=== PATIENT | male | born 1945 | race Caucasian/White ===

== ENCOUNTER → 2022-04-24 | Outpatient (CLI) | payer OTHER | END | disposition home or self-care (01) | LOC: LAB 13:15 → LAB SHORT 13:15 | PROVIDERS: Family Medicine | DX: G89.4 Chronic pain syndrome (principal); Z79.899 Other long term (current) drug therapy | CPT/HCPCS: G0480 ==

== ENCOUNTER 2023-08-31 22:18 | Emergency (ER) | payer OTHER ==
[~2023-08-31] VITALS: Ht 172.7 cm; Wt 79.4 kg
[2023-08-31 22:43] LABS: Hematocrit 34.4 % (37.0-53.0); Hemoglobin 11.7 g/dL (13.5-17.5); Mean Corpuscular HGB 28.9 pg (26.0-34.0); Mean Corpuscular Volume 85 fL (80-100); Mean Platelet Volume 11.5 fL (9.1-12.4); Platelet Count 219 K/mm3 (150-400); RDW Coefficient Variation 15.9 % (11.7-14.2); RDW Standard Deviation 49.5 fL (35.1-46.3); Red Blood Cell Count 4.05 M/mm3 (4.30-5.90); White Blood Cell Count 20.07 K/mm3 (4.00-11.30)
[2023-08-31 23:02] LABS: Albumin, Blood 3.4 g/dL (3.4-5.0); Albumin/Globulin Ratio 0.8 (0.8-1.8); BAND PERCENT MAN 17 % (0-8); BASOPHILS PERCENT MAN 0 % (0-2); Bilirubin, Total 1.1 mg/dL (0.1-1.0); Bun/Creatinine Ratio 28.1 (12.0-20.0); Calcium, Blood 8.9 mg/dL (8.5-10.1); Creatinine, Blood 1.39 mg/dL (0.60-1.20); EOSINOPHILS PERCENT MAN 0 % (0-6); Globulin, Blood 4.3 g/dL (2.2-4.0); LYMPHOCYTES PERCENT MAN 4 % (21-46); MONOCYTES PERCENT MAN 2 % (4-13); NEUTROPHILS ABSOLUTE MAN 18.86 K/mm3 (1.96-9.15); Potassium, Blood 3.6 mmol/L (3.5-5.5); SEG NEUTROPHILS PERCENT MAN 77 % (41-73); TOTAL CELLS COUNTED 100; Total Protein, Blood 7.7 g/dL (6.4-8.2)
[2023-09-01 02:00] VITALS: BP 105/50
[2023-09-01 02:25] LABS: Calcium, Ionized (POC) 1.07 mmol/L (1.10-1.46); Chloride (POC) 98 mmol/L (98-108); Creatinine (POC) 1.2 mg/dL (0.8-1.3); Glucose (ISTAT POC) 91 mg/dL (70-99); Hemoglobin (POC) 9.9 g/dL (13.5-17.5); Potassium (POC) 3.2 mmol/L (3.5-5.5); Sodium (POC) 132 mmol/L (135-148); Total CO2 (POC) 24 mmol/L (21-32)
== END 2023-09-01 02:23 | disposition home or self-care (01) ==
LOC: ER 22:18
PROVIDERS: Physician Assistant; Student in an Organized Health Care Education/Training Program
DX: A41.9 Sepsis, unspecified organism (principal); L03.116 Cellulitis of left lower limb; N17.9 Acute kidney failure, unspecified; E87.1 Hypo-osmolality and hyponatremia; E86.1 Hypovolemia; S30.810A Abrasion of lower back and pelvis, initial encounter; I10 Essential (primary) hypertension; W01.10XA Fall on same level from slipping, tripping and stumbling with subsequent striking against unspecified object, initial encounter
CPT/HCPCS: 70450; 72125; 73590; 80047; 80053; 83605; 85014; 85025; 96361; 96365; 99284-25; A9270; J0690; J7030

== ENCOUNTER 2023-09-03 16:39 | Inpatient (IN) | payer OTHER ==
[~2023-09-03] VITALS: Ht 170.2 cm; Wt 75.9 kg
[2023-09-03 17:27] LABS: Hematocrit 37.8 % (37.0-53.0); Hemoglobin 12.9 g/dL (13.5-17.5); Mean Corpuscular HGB 28.8 pg (26.0-34.0); Mean Corpuscular HGB Conc 34.1 g/dL (31.5-36.5); Mean Corpuscular Volume 84 fL (80-100); Mean Platelet Volume 11.9 fL (9.1-12.4); Platelet Count 344 K/mm3 (150-400); RDW Coefficient Variation 15.9 % (11.7-14.2); RDW Standard Deviation 49.9 fL (35.1-46.3); Red Blood Cell Count 4.48 M/mm3 (4.30-5.90); White Blood Cell Count 30.08 K/mm3 (4.00-11.30)
[2023-09-03 17:50] LABS: BAND PERCENT MAN 19 % (0-8); BASOPHILS PERCENT MAN 0 % (0-2); EOSINOPHILS PERCENT MAN 0 % (0-6); LYMPHOCYTES PERCENT MAN 7 % (21-46); MONOCYTES PERCENT MAN 2 % (4-13); NEUTROPHILS ABSOLUTE MAN 27.37 K/mm3 (1.96-9.15); SEG NEUTROPHILS PERCENT MAN 72 % (41-73); TOTAL CELLS COUNTED 100
[2023-09-03 17:55] LABS: Albumin, Blood 2.7 g/dL (3.4-5.0); Albumin/Globulin Ratio 0.5 (0.8-1.8); Bilirubin, Total 0.6 mg/dL (0.1-1.0); Bun/Creatinine Ratio 26.2 (12.0-20.0); Calcium, Blood 8.9 mg/dL (8.5-10.1); Creatinine, Blood 2.25 mg/dL (0.60-1.20); Globulin, Blood 5.2 g/dL (2.2-4.0); Potassium, Blood 3.5 mmol/L (3.5-5.5); Total Protein, Blood 7.9 g/dL (6.4-8.2)
[2023-09-03 21:44] LABS: Thyroid Stimulating Hormone 1.2 uIU/mL (0.360-4.800)
[2023-09-04] VITALS (93 sets, daily range): BP systolic 80–144; BP diastolic 43–101
[2023-09-04 00:37] LABS: Magnesium, Blood 2.3 mg/dL (1.6-2.4)
[2023-09-04] MEDS ORDERED: LISI20 PO (01:07)
[2023-09-04] MEDS ORDERED: ATOR40TA PO (01:08)
[2023-09-04] MEDS ORDERED: Norco 7.5-3251 EACH PO (01:08)
[2023-09-04] MEDS ORDERED: CEPHALEXIN500 M1 PO (01:09)
--- NOTE | 2023-09-04 02:41 | NUR ---
ARRIVAL TO ICU PT ARRIVED TO ICU VIA ED GURNEY. PER ED NURSE, AMIO BOLUS WAS STARTED AND PT SBP IN THE 70'S. HR 140-150'S. AMIO BOLUS WAS STOPPED BY ED RN AND KALE ORDERED. ORDER TO ADMINISTER BOLUS AFTER PT BP IMPROVES WITH KALE AND 1L BOLUS. APPROX 15 MINS AFTER ARRIVAL, PT SELF CONVERTED TO SR 70'S WITH MAP GREATER THEN 65. HOSP CALLED AND ORDER TO HOLD AMIO BOLUS AND GTT. KALE ON SB INITIALLY. PT THEN FELL ASLEEP, MAP BELOW 65 AND KALE STARTED. SEE FLOWSHEET FOR TITRATIONS. OTHER VSS. ON RA. WOUND TO LEFT FOOT AND LEFT BUTTOCK. PICS IN CHART. PREVIOUS REDNESS MARKED BELOW KNEE, CURRENT REDNESS EXTENDS PAST TO INNER THIGH. RASH/EXCORIATION IN MILLIE AREA. PT STATES HE STATES HE HAS BEEN USING "A DIAPER" THE PAST WEEK OR SO. PT STATES HE IS CONTINENT OF URINE. USES URINAL IND. GRANDSON AT BEDSIDE AND ABLE TO PROVIDE FURTHER HISTORY AND MEDICATION LIST. PT A/O X 4. FORGETFUL AT TIMES. BEDREST AT THIS TIME.
[2023-09-04 03:48] LABS: BASOPHILS ABSOLUTE AUTO 0.17 K/mm3 (0.00-0.23); BASOPHILS PERCENT AUTO 1 % (0-2); EOSINOPHILS PERCENT AUTO 0 % (0-6); Hematocrit 31.6 % (37.0-53.0); Hemoglobin 10.5 g/dL (13.5-17.5); IMMATURE GRAN ABSOLUTE AUTO 0.88 K/mm3 (0.00-0.10); IMMATURE GRAN PERCENT AUTO 4 % (0-1); LYMPHOCYTES ABSOLUTE AUTO 1.74 K/mm3 (0.84-5.20); LYMPHOCYTES PERCENT AUTO 7 % (21-46); MONOCYTES ABSOLUTE AUTO 0.99 K/mm3 (0.16-1.47); MONOCYTES PERCENT AUTO 4 % (4-13); Mean Corpuscular HGB 28.6 pg (26.0-34.0); Mean Corpuscular HGB Conc 33.2 g/dL (31.5-36.5); Mean Corpuscular Volume 86 fL (80-100); Mean Platelet Volume 11.6 fL (9.1-12.4); NEUTROPHILS ABSOLUTE AUTO 21.36 K/mm3 (1.96-9.15); NEUTROPHILS PERCENT AUTO 85 % (41-73); Platelet Count 291 K/mm3 (150-400); RDW Standard Deviation 50.3 fL (35.1-46.3); Red Blood Cell Count 3.67 M/mm3 (4.30-5.90); White Blood Cell Count 25.24 K/mm3 (4.00-11.30)
[2023-09-04 04:15] LABS: Albumin/Globulin Ratio 0.5 (0.8-1.8); Bilirubin, Total 0.5 mg/dL (0.1-1.0); Bun/Creatinine Ratio 41.3 (12.0-20.0); Calcium, Blood 7.3 mg/dL (8.5-10.1); Creatinine, Blood 1.26 mg/dL (0.60-1.20); Globulin, Blood 4.1 g/dL (2.2-4.0); Potassium, Blood 3.8 mmol/L (3.5-5.5); Total Protein, Blood 6.1 g/dL (6.4-8.2)
--- NOTE | 2023-09-04 05:53 | NUR ---
SHIFT SUMMARY NO ACUTE EVENTS T/O NIGHT. PT DID CONVERT TO AFIB RATE 120-140'S FOR APPROX 10MINS AND THEN SELF CONVERTED BACK TO SR 70-80'S. DENIES CHEST PAIN/PRESSURE. KALE GTT INFUSING. NS AT 125ML/HR. MEDICATED X1 WITH PRN PO MEDICATION. SEE EMAR. LEFT WOUND DRAINING CLEAR/YELLOW FLUID. PT VOIDS USING URINAL. GRANDSON AT BEDSIDE T/O NIGHT. WILL REPORT OFF TO ONCOMING RN.
--- NOTE | 2023-09-04 13:45 | NUR ---
WOUND CARE PT REPORTS RECENT FALL IN SHOWER WHERE HE "SCALDED" BUTTOCKS. WOULD RECOMMEND CLEANSING WITH NS AND APPLYING SILVADENE DAILY. LLE CLEANSED WITH DERMAL WOUND, LIGHT DEBRIDEMENT OF DRIED EXUDATE/SKIN WITH GAUZE NICKEL THICK SILICONE BARRIER CREAM APPLIED TO LOWER LEG AND FOOT COVERED ABD/ROLLED GAUZE
--- NOTE | 2023-09-04 15:19 | NUR ---
SHIFT SUMMARY NO ACUTE CHANGES THIS SHIFT. PT HAS REMAINED ALERT AND ORIENTED WHEN AWAKE. PT IS PLEASANT AND ABLE TO MAKE NEEDS KNOWN. PT MED FOR LLE PAIN PER EMAR. LLE REDDNESS AND SWELLING REMAINS UNCHANGED. WOUNDS TO LEFT HIP/BUTTOCKS UNCHANGED WITH DRESSINGS C/D/I. PT TITRATED OFF AND ON NEOSYNEPHRINE THIS SHIFT FOR HYPOTENSION. PT WITH KALE ON STANDBY AT THIS TIME. SEE FLOWSHEET. NS INFUSING AT 125 ML/HR. VITAL SIGNS STABLE AT THIS TIME. PT ON ROOM AIR. PT USING URINAL TO VOID INDEPENDENTLY. PT ABLE TO TURN SELF IN BED. PT GRANDSON AT BEDSIDE AT THIS TIME. PT REMAINS NPO AT THIS TIME, AWAITING PLAN OF CARE FROM DR PINEDA. WILL CONTINUE TO MONITOR AND REPORT OFF TO ONCOMING RN.
--- NOTE | 2023-09-04 19:25 | NUR ---
ASSUMED CARE OF PATIENT AT 1900. REPORT RECEIVED FROM LEORA CARTER. VSS AND NO ACUTE NEEDS IDENTIFIED AT THIS TIME. SEE SHIFT ASSESSMENT FOR FULL ASSESSMENT DETAILS.
[2023-09-05] VITALS (45 sets, daily range): BP systolic 92–154; BP diastolic 47–91
--- NOTE | 2023-09-05 05:42 | NUR ---
SHIFT SUMMARY PATIENT REMAINED ALERT AND ORIENTED X4 THROUGHOUT ENTIRETY OF SHIFT. HE WAS ABLE TO VERBALIZE NEEDS AND FOLLOW VERBAL COMMANDS WITH PUROSEFUL MOVEMENTS. REMAINED AFEBRILE. REPORTED ONE EPISODE OF PAIN IN LLE AND WAS MEDICATED PER EMAR WITH GOOD BENEFIT. MONITOR SHOWED SR WITH HR IN 70'S-80'S. BP REMAINED STABLE WITH SBP IN 90'S-100'S. NO BM THIS SHIFT. PATIENT NPO AT 0000 IN PREPARATION FOR SURGERY 09/05/23 AM. UTILIZES BEDSIDE URINAL WITH DARK YELLOW URINE OUTPUT. CELLULITIS TO LLE. PT WAS SEEN BY WOUND CLINIC 09/04/23 AM. PT ALSO HAS SCALD TO L BUTTOCK. PICS IN CHART. PIV TO RFA INFUSING NS AT 125ml/HR, PIV TO LAC. NEOSYNEPHRINE ON SB. WILL CONTINUE TO MONITOR AND REPORT TO ONCOMING NURSE.
[2023-09-05 08:31] LABS: Hematocrit 30.5 % (37.0-53.0); Hemoglobin 10.3 g/dL (13.5-17.5); Mean Corpuscular HGB 28.7 pg (26.0-34.0); Mean Corpuscular HGB Conc 33.8 g/dL (31.5-36.5); Mean Corpuscular Volume 85 fL (80-100); Mean Platelet Volume 10.5 fL (9.1-12.4); Platelet Count 318 K/mm3 (150-400); RDW Coefficient Variation 16.3 % (11.7-14.2); RDW Standard Deviation 50.8 fL (35.1-46.3); Red Blood Cell Count 3.59 M/mm3 (4.30-5.90); White Blood Cell Count 14.34 K/mm3 (4.00-11.30)
[2023-09-05 09:13] LABS: BAND PERCENT MAN 2 % (0-8); BASOPHILS ABSOLUTE MAN 0.14 K/mm3 (0.00-0.23); BASOPHILS PERCENT MAN 1 % (0-2); EOSINOPHILS PERCENT MAN 0 % (0-6); LYMPHOCYTES % ATYPICAL MANUAL 1 % (0-0); LYMPHOCYTES ABSOLUTE MAN 1.57 K/mm3 (0.84-5.20); LYMPHOCYTES PERCENT MAN 10 % (21-46); MONOCYTES ABSOLUTE MAN 0.43 K/mm3 (0.16-1.47); MONOCYTES PERCENT MAN 3 % (4-13); MYELOCYTE ABSOLUTE MAN 0.14 K/mm3 (0.00-0.00); MYELOCYTE PERCENT MAN 1 % (0-0); NEUTROPHILS ABSOLUTE MAN 12.04 K/mm3 (1.96-9.15); SEG NEUTROPHILS PERCENT MAN 82 % (41-73); TOTAL CELLS COUNTED 100
[2023-09-05 09:25] LABS: Albumin, Blood 2.1 g/dL (3.4-5.0); Albumin/Globulin Ratio 0.5 (0.8-1.8); Bilirubin, Total 0.4 mg/dL (0.1-1.0); Bun/Creatinine Ratio 28.7 (12.0-20.0); Calcium, Blood 8.3 mg/dL (8.5-10.1); Creatinine, Blood 1.08 mg/dL (0.60-1.20); Globulin, Blood 4.4 g/dL (2.2-4.0); Potassium, Blood 3.3 mmol/L (3.5-5.5); Total Protein, Blood 6.5 g/dL (6.4-8.2)
--- NOTE | 2023-09-05 10:50 | NUR ---
ASSUMED CARE REPORT FROM WENDY COREY AT 0700. PT RESTING IN BED. WAKES c VERBAL STIMULI. A&OX3. ANSWERS QUESTIONS APPROPRIATELY, FOLLOWS COMMANDS. PT FEARFUL AND UNSURE ABOUT CARE PLAN. DR MOYA AT BEDSIDE TO DISCUSS SX c BKA. PT VERBALIZED UNDERSTANDING, PLAN FOR OR AT APPROX 1200. SWELLING, REDNESS TO L FOOT, DRESSING IN PLACE. 3+ EDEMA. PT ALSO HAS SKIN SLOUGHING TO BACK, PICS IN CHART, DRESSED c MEPILEX. LUNGS CLEAR. ON RA. SR ON MONITOR, RATE 70'S. BP STABLE. PT ABLE TO AMBULATED c WALKER TO [facility] IN ROOM, STANDBY ASSIST. WILL CONTINUE TO MONITOR.
[2023-09-05 12:36] LABS: Vancomycin, Random 13.1 ug/mL
--- NOTE | 2023-09-05 14:05 | NUR ---
History, Chart, Medications and Allergies reviewed before start of procedure. Lungs clear T/O to Auscultation. Patient confirms NPO status and agrees with scheduled surgery. Pre-Op teaching done. Pt verbalizes understanding.
--- NOTE | 2023-09-05 14:06 | NUR ---
20G IV REMOVED FROM R WRIST DUE OT LEAKING AND REDNESS NOTED.
--- NOTE | 2023-09-05 14:22 | NUR ---
REPORT TO RAUL De Los Santos RN
--- NOTE | 2023-09-05 15:10 | NUR ---
OR/TRANSFER TO SURGICAL FLOOR PT TO OR AT 1330. REPORT TO RENE ON SURGICAL FLOOR. ALL BELONGINGS SENT TO ROOM 213.
--- NOTE | 2023-09-05 15:11 | NUR ---
TIME OUT COMPLETED FOR PERIPHERAL NERVE BLOCK TO LEFT LEG.
--- NOTE | 2023-09-05 17:33 | NUR ---
PATIENT JUST ARRIVED FROM PACU AT 1733. POD 0 LEFT BKA PATIENT IS A&OX4. VS ARE WNL AND IS ON RA. PATIENT DENIES PAIN AT THIS TIME. HIS LEFT STUMP HAS A STUMP SOCK THAT IS C/D/I AND IS ELEVATED ON A PILLOW. HE ALSO DENIES NAUSEA OR VOMITING. HE IS TOLERATING PO INTAKE. OBED CARDONA IS AT BEDSIDE. HE IS LAYING IN BED WITH CALL LIGHT IN REACH.
[2023-09-05 19:13] LABS: Bun/Creatinine Ratio 24.4 (12.0-20.0); Calcium, Blood 8.3 mg/dL (8.5-10.1); Creatinine, Blood 0.98 mg/dL (0.60-1.20); Potassium, Blood 3.8 mmol/L (3.5-5.5)
--- NOTE | 2023-09-06 02:25 | NUR ---
SINUS BRADYCARDIA. CALL RECEIVED FROM SURINDER BIRD IN TELEMETRY AT APPROXIMATLY 0220. PT'S HEART RATE DROPPED TO 39 BPM AND THEN RETURNS TO 52. PT IS REMAINING IN SINUS RHYTHM. THIS RN VISUALIZED PATIENT AND PT DENIES SOB, CHEST PAIN, LIGHTHEADEDNESS, OR DIZZINESS. PT A/O X4 AND REPORTS HE FEELS OK AND DENIES SYMPTOMS. LEFT BKA IS CLEAN DRY AND INTACT.
[2023-09-06 02:41] VITALS: BP 133/60
[2023-09-06 05:18] LABS: Hematocrit 26.3 % (37.0-53.0); Mean Corpuscular HGB 28.8 pg (26.0-34.0); Mean Corpuscular HGB Conc 34.2 g/dL (31.5-36.5); Mean Corpuscular Volume 84 fL (80-100); Mean Platelet Volume 10.6 fL (9.1-12.4); Platelet Count 280 K/mm3 (150-400); RDW Coefficient Variation 16.2 % (11.7-14.2); RDW Standard Deviation 49.8 fL (35.1-46.3); Red Blood Cell Count 3.13 M/mm3 (4.30-5.90); White Blood Cell Count 12.74 K/mm3 (4.00-11.30)
[2023-09-06 05:49] LABS: Albumin, Blood 1.9 g/dL (3.4-5.0); Albumin/Globulin Ratio 0.5 (0.8-1.8); Bilirubin, Total 0.3 mg/dL (0.1-1.0); Bun/Creatinine Ratio 25.5 (12.0-20.0); Calcium, Blood 8.2 mg/dL (8.5-10.1); Creatinine, Blood 0.94 mg/dL (0.60-1.20); Globulin, Blood 4.1 g/dL (2.2-4.0); Potassium, Blood 3.6 mmol/L (3.5-5.5)
[2023-09-06 05:56] LABS: BAND PERCENT MAN 3 % (0-8); BASOPHILS PERCENT MAN 0 % (0-2); EOSINOPHILS PERCENT MAN 0 % (0-6); LYMPHOCYTES % ATYPICAL MANUAL 1 % (0-0); LYMPHOCYTES PERCENT MAN 3 % (21-46); METAMYELOCYTE ABSOLUTE MAN 0.25 K/mm3 (0.00-0.00); METAMYELOCYTE PERCENT MAN 2 % (0-0); MONOCYTES PERCENT MAN 4 % (4-13); NEUTROPHILS ABSOLUTE MAN 11.46 K/mm3 (1.96-9.15); SEG NEUTROPHILS PERCENT MAN 87 % (41-73); TOTAL CELLS COUNTED 100
--- NOTE | 2023-09-06 06:40 | NUR ---
SHIFT SUMMARY NOC. PT POD 1 FOR LEFT BKA. PT'S STUMP IS C/D/I. PT HAS HAD NO PAIN THIS SHIFT AND HAS NOT NEEDED PAIN MEDICATION. PT WAS ABLE TO DANGLE AT BEDSIDE AND PRACTICED STANDING AT BEDSIDE WITH GAIT BELT AND SBA. PT IS MOTIVATED TO WORK WITH PHYSICAL THERAPY. PT ON TELEMETRY AND WAS NOTIFIED OF BREIF SINUS BRADYCARDIA EVENTS. PT VISUALIZED AND WAS ASYMPTOMATIC DURING THESE INSTANCES. CHILDHOOD TEACHER AWARE AND DISCUSSED THE ABOVE. THIS RN WAS NOTIFIED OF A SKIN TEAR ON PT'S LEFT UPPER ARM. SKIN TEAR DRESSED AND PT DENIED PAIN AT SITE. PT RESTED WITH EYES CLOSED AND CALL LIGHT IN REACH.
[2023-09-06 07:47] VITALS: BP 130/66
[2023-09-06 14:30] VITALS: BP 135/59
--- NOTE | 2023-09-06 15:38 | NUR ---
Pt resting in bed and is A&OX4. Pt's grandson Edvin at bedside. Pt and grandson confirm interest in learning about advanced directives. Educated on sections to complete, scenarios, and choices. Discussed the importance of appointing a healthcare lead customer service representative. Provided a POLST form as well. Educated on life sustaining treatments including risks and implications to CPR/Intubation. Educated on each section to complete and options. Pt and grandson express appreciation and report no other concerns at this time. Palliative Care will remain available
--- NOTE | 2023-09-06 19:40 | NUR ---
SHIFT SUMMARY ALERT, ORIENTED, PLEASANT, COOPERATIVE. POD 1 L BKA. SBA WITH FWW AND GB UP TO COMMODE AND RECLINER. WORKED WELL WITH PHYSICAL THERAPY. TOLERATING REGULAR DIET AND LIQUIDS. VOIDING WELL. LEFT STUMP DRESSED WITH GAUZE, LINDA WRAP, AND STUMP SOCK. C/D/I. NO DRAINAGE NOTED. PAIN CONTROLLED WITH PO PAIN MEDS PER EMAR. TELE DC'D. OBED CARDONA ATTENTIVE AT BEDSIDE FOR MOST OF DAY. HE IS TO BE CAREGIVER FOR PATIENT WHEN HE DISCHARGES. PLAN IS TO DISCHARGE HOME IF REMAINS STABLE. REPORT GIVEN TO TELECOMMUNICATIONS LINE MECHANIC RN.
[2023-09-06 20:15] VITALS: BP 131/59
--- NOTE | 2023-09-07 00:02 | NUR ---
DRESSING CHNAGE WHEN ROUNDING ON THE PT, HE STATED THAT HE RIPPED OFF HIS L BUTTOC MEPILEX x3. SOME SKIN NOTED ON DRESSING PT REMOVED HIMSELF. HE STATED THEY WERE "HURTING AND ITCHING" PT WAS EDUCATED ABOUT RISK FOR INFECTION AND NEED TO MAINTAIN A PHYSCIAL BARRIER BETWEEN HIS BURN AND OTHER OBJECTS. PT AGREED TO HAVE DRESSING RE-APPLIED. WOUND CLEANED, DRIED, AND SILVER RE-APPLIED. MEPILEX x3 PLACED OVER INJURED AREA. PT REPORTED DISCOMFORT WITH DRESSING CHANGE, BUT TOLERATED WELL.
[2023-09-07 04:20] VITALS: BP 144/61
--- NOTE | 2023-09-07 04:36 | NUR ---
PATIENT CONCERNS PATIENT STATES THAT HE WANTS TO HAVE HIS GRANDSON COME PICK HIM UP FROM THE HOSPITAL AND LEAVE LATIA UPON WAKING UP FOR AM LABS. THE CONVERSATION BETWEEN THIS RN AND THE PT CONSISTED OF MANY RAMBLING THOUGHTS AND FEELINGS. THE PATIENT EXPRESSES FRUSTRATION WITH NOT BEING ABLE TO DO HIS OWN ADL'S, SUCH GOING TO THE BATHROOM OR "TAKING MEDICATION WHEN HE LIKES". PATIENT STATES THAT HE IS NOT BEING MEDICATED FOR PAIN ENOUGH, WHEN ASKED TO EXPLAIN FURTHER, PATIENT STATED THAT HE WAS UPSET THAT PAIN MEDS WERE NOT BEING BROUGHT TO HIM AROUND THE CLOCK. PATIENT EDUCATED THAT PAIN MEDICATION IS ORDERED PRN, THEREFORE, IF THE PATIENT WAS ASLEEP AND SNORING AND DID NOT WAKE UP WHILE TASKS WERE BEING DONE IN THE ROOM THAT PAIN MEDICATION WAS NOT GOING TO BE ADMINISTERED. PATIENT EXPRESSED THAT HE FELT THIS WAS WRONG. PATIENT ALSO EXPRESSED THAT HE FELT LIKE HE WAS BEING IGNORED AND FORGOTTEN ABOUT IN THE HOSPITAL, BY STAFF AND BY HIS FAMILY. WHEN ASKED TO ELABORATE THE PATIENT STATED THAT HE HAS NO IDEA WHAT HIS PLAN OF CARE IS OR WHAT HE IS SUPPOSED TO DO WITH HIS LIFE AT THIS POINT. THE PATIENT EXPRESSED THAT HE FEELS IF WE ARE WASTING HIS TIME AND THAT "NOTHING HERE IS MOVING FAST ENOUGH". PATIENT EDUCATED THAT HE IS ONLY 2 DAYS POST OP AND THAT HE HAS TWO LARGE WOUNDS, THE BURN ON HIS UPPER LEFT LEG/BUTTOCKS/UPPER THIGH AND HIS LEFT BELOW THE KNEE AMPUTATION, THAT NEED TIME TO HEAL. THIS RN SPOKE TO THE PATIENT ABOUT PROPER CARE TO ASSURE INFECTION DOES NOT SET INTO THE PATIENT'S WOUNDS. THE PATIENT WAS UNRECEPTIVE TO ALL EDUCATION AND DID NOT WANT TO FURTHER THE CONVERSATION AT THIS POINT. THROUGHOUT THE CONVERSATION, THE PATIENT KEPT ASKING WHY THERE WAS MIST IN THE ROOM. IT APPEARS TO THIS RN THAT THE PATIENT MAY BE POSSIBLY HALLUCINATING.
[2023-09-07 04:55] LABS: Hematocrit 27.4 % (37.0-53.0); Hemoglobin 9.2 g/dL (13.5-17.5); Mean Corpuscular HGB 28.4 pg (26.0-34.0); Mean Corpuscular HGB Conc 33.6 g/dL (31.5-36.5); Mean Corpuscular Volume 85 fL (80-100); Mean Platelet Volume 10.6 fL (9.1-12.4); Platelet Count 316 K/mm3 (150-400); RDW Standard Deviation 49.5 fL (35.1-46.3); Red Blood Cell Count 3.24 M/mm3 (4.30-5.90); White Blood Cell Count 11.78 K/mm3 (4.00-11.30)
--- NOTE | 2023-09-07 05:19 | NUR ---
SHIFT SUMMARY POD 2 L BKA. VSS. STUMP SOCK C/D/I. 2 DRESSING CHNAGES TO L BACK/BUTTOCK THIS SHIFT R/T PT REMOVING 1st DRESSING. MEPILEX x3 C/D/I. PT TOLERATING ORALS. AMBULATES c FWW. USES URINAL INDEPENDENTLY. PAIN MANAGED PER EMAR. REFER TO PREVIOUS NOTE FOR PT MENTATION/CONCERNS. ANTICIPATED DISCHARGE TODAY HOME c [facility]. CALL LIGHT IN REACH, BED IN LOWEST POSITION, WILL REPORT TO DAY RN.
[2023-09-07 05:27] LABS: Albumin/Globulin Ratio 0.5 (0.8-1.8); Bilirubin, Total 0.5 mg/dL (0.1-1.0); Calcium, Blood 7.9 mg/dL (8.5-10.1); Creatinine, Blood 0.88 mg/dL (0.60-1.20); Potassium, Blood 3.1 mmol/L (3.5-5.5)
[2023-09-07 06:27] LABS: BAND PERCENT MAN 5 % (0-8); BASOPHILS PERCENT MAN 0 % (0-2); EOSINOPHILS ABSOLUTE MAN 0.35 K/mm3 (0.00-0.68); EOSINOPHILS PERCENT MAN 3 % (0-6); LYMPHOCYTES ABSOLUTE MAN 2.82 K/mm3 (0.84-5.20); LYMPHOCYTES PERCENT MAN 24 % (21-46); METAMYELOCYTE ABSOLUTE MAN 0.11 K/mm3 (0.00-0.00); METAMYELOCYTE PERCENT MAN 1 % (0-0); MONOCYTES ABSOLUTE MAN 0.47 K/mm3 (0.16-1.47); MONOCYTES PERCENT MAN 4 % (4-13); MYELOCYTE PERCENT MAN 6 % (0-0); SEG NEUTROPHILS PERCENT MAN 57 % (41-73); TOTAL CELLS COUNTED 100
[2023-09-07 07:14] VITALS: BP 137/63
[2023-09-07 13:19] LABS: Vancomycin, Trough 14.4 ug/mL (5.0-10.0)
--- NOTE | 2023-09-07 13:23 | NUR ---
PATIENT ARRIVED FROM ER TODAY AT 1300. PATIENT IS SMILING AND TALKATIVE. WHEN LISTENING TO HER LUNGS SHE DOES HAVE STRIDOR WITH A STRONG BARKY COUGH BUT DOES HAVE >90% OXYGEN SATS ON RA. SHE IS PLAYING WITH HER TOYS IN THE ROOM. GRANDPARENTS WHO ARE THE ONES IN CUSTODY ARE BOTH AT BEDSIDE WITH PATIENT. SHE IS TOLERATING SMALL AMOUNTS OF PO INTAKE. PATIENT DOES NOT HAVE A FEVER AT THIS TIME. CALL LIGHT IS WITHIN REACH OF PATIENT AND GRANDPARENTS.
--- NOTE | 2023-09-07 18:38 | NUR ---
DISCHARGE NOTE: PATIENTS GRANDSON/CAREGIVER WAS EDUCATED ON DISCHARGE INSTRUCTIONS DUE TO PATIENT BEING A POOR HISTORIAN/POOR MEMORY. PATIENTS GRANDSON/CAREGIVER VERBALIZED UNDERSTANDING OF DISCHARGE INSTRUCTIONS AND HAD NO FURTHER QUESTIONS AT THIS TIME. PATIENTS LEFT STUMP HAS A STUMP SOCK THAT IS C/D/I. PAIN IS MANAGED WITH PO TYLENOL AND NORCO. HIS BURN ON HIS LEFT BUTTOCKS/SIDE DRESSING WAS JUST CHANGED AND IS C/D/I AT THIS TIME. PATIENTS GRANDSON WAS GIVEN EXTRA SUPPLIES FOR PATIENTS STUMP SOCK AND BURN DRESSING. PATIENT IS TOLERATING PO INTAKE AND IS VOIDING. HE IS A SBA WITH FWW AND GAIT BELT FOR A STAND PIVIOT TRANSFER. PATIENT IS DRESSED AND HAS PERSONAL ITEMS IN THE ROOM GATHERED. PATIENT IS AWAITING FOR HIS WHEELCHAIR AND SHOWER CHAIR TO BE DELIEVERED TO HIS ROOM AND THIS PATIENT CAN BE WHEELCHAIRED OUT TO HIS GRANDSONS CAR TO BE TAKEN HOME. IV WAS TAKEN OUT AND WNL.
--- NOTE | 2023-09-07 19:01 | NUR ---
PATIENTS [place] ITEMS FOR HOME JUST ARRIVED AND PATIENT IS BEING WHEELCHAIRED OUT WITH GRANDSON TO HIS CAR TO BE TAKEN HOME.
== END 2023-09-07 19:04 | disposition home or self-care (01) | DRG 854 ==
LOC: ER 16:39 → ICUE 20:52 → SURS 20:52 → ICUE 23:10 → SURS 09-05 15:00
PROVIDERS: Family Medicine; Nurse Practitioner Acute Care; Orthopaedic Surgery; Physician Assistant; ADMIT Internal Medicine
PROC: 3E03329 Introduction of Other Anti-infective into Peripheral Vein, Percutaneous Approach (ICD-10-PCS; 2023-09-03)
PROC: 0Y6J0Z1 Detachment at Left Lower Leg, High, Open Approach (ICD-10-PCS; principal; 2023-09-05 13:45)
DX: A41.9 Sepsis, unspecified organism (principal); E87.1 Hypo-osmolality and hyponatremia; L03.116 Cellulitis of left lower limb; N17.9 Acute kidney failure, unspecified; I50.30 Unspecified diastolic (congestive) heart failure; E87.20 Acidosis, unspecified; M00.9 Pyogenic arthritis, unspecified; M86.8X6 Other osteomyelitis, lower leg; R65.20 Severe sepsis without septic shock; I48.91 Unspecified atrial fibrillation; E87.6 Hypokalemia; E86.1 Hypovolemia; E78.5 Hyperlipidemia, unspecified; R74.01 Elevation of levels of liver transaminase levels; D64.9 Anemia, unspecified; I11.0 Hypertensive heart disease with heart failure; I27.20 Pulmonary hypertension, unspecified; Z98.890 Other specified postprocedural states; Z79.899 Other long term (current) drug therapy; Z79.2 Long term (current) use of antibiotics
CPT/HCPCS: 36415; 73620; 73701; 80048; 80053; 80202; 83605; 83735; 83880; 84443; 85025; 87040; 88307; 93005; 93010; 93306; 96361; 96365-59; 96367; 96375-59; 97110; 97116; 97162; 97165; 97530; 97535; 99285-25; A9270; J0282; J1100; J1650; J1940; J2185; J2250; J2371; J2405; J2543; J2704; J3010; J3370; J3480; J3490; J7030; J7040; J7050; J7060; J7120; Q9967

== ENCOUNTER → 2023-09-20 | Outpatient (CLI) | payer OTHER ==
[~2023-09-20] MED LIST: ATOR40TA PO; CEPHALEXIN500 M1 PO; HYDCHL25; LISI20 PO; Mupirocin22 GM TOP; Norco 7.5-3251 EACH PO; OXYC5; PREGABALIN75 MG; SILVER SULFADIA2011; VANCOCIN HCL125 MG PO
[2023-09-20 18:24] LABS: Campylobacter Sp Not Detected (NOT DETECT)
[2023-09-20 18:25] LABS: Adenovirus F 40/41 Not Detected (NOT DETECT); Astrovirus Not Detected (NOT DETECT); Cryptosporidium Not Detected (NOT DETECT); Cyclospora Cayetanensis Not Detected (NOT DETECT); E. Coli O157 Not Detected (NOT DETECT); Entamoeba Histolytica Not Detected (NOT DETECT); Enteroaggregative E. coli-EAEC Not Detected (NOT DETECT); Enteropathogenic E. coli-EPEC Not Detected (NOT DETECT); Enterotoxigenic E. coli-ETEC Not Detected (NOT DETECT); Giardia Lamblia Not Detected (NOT DETECT); Norovirus GI/GII Not Detected (NOT DETECT); Plesiomonas Shigelloides Not Detected (NOT DETECT); Rotavirus A Not Detected (NOT DETECT); Salmonella Sp Not Detected (NOT DETECT); Sapovirus Not Detected (NOT DETECT); Shiga Toxin-prod E. coli-STEC Not Detected (NOT DETECT); Shigella/Enteroin E. coli-EIEC Not Detected (NOT DETECT); Vibrio Cholerae Not Detected (NOT DETECT); Vibrio Sp Not Detected (NOT DETECT); Yersinia Enterocolitica Not Detected (NOT DETECT)
== END | disposition home or self-care (01) ==
LOC: LAB 16:19 → LAB SHORT 16:19
PROVIDERS: Nurse Practitioner Family
DX: R19.7 Diarrhea, unspecified (principal)
CPT/HCPCS: 87324; 87507

== ENCOUNTER → 2023-09-20 | Outpatient (CLI) | payer OTHER ==
[2023-09-20 20:49] LABS: Alanine Aminotransfer (ALT/SGP 22 U/L (12-78); Albumin, Blood 2.7 g/dL (3.4-5.0); Albumin/Globulin Ratio 0.6 (0.8-1.8); Alk Phos 95 U/L (50-136); Anion Gap 6 mmol/L (6-16); Aspartate Aminotrans (AST/SGOT 28 U/L (12-37); Bilirubin, Total 0.5 mg/dL (0.1-1.0); Blood Urea Nitrogen 18 mg/dL (8-24); Bun/Creatinine Ratio 18.1 (12.0-20.0); CHOL/HDL RATIO 2.1; CO2, Blood 28 mmol/L (21-32); Calcium, Blood 8.4 mg/dL (8.5-10.1); Chloride, Blood 105 mmol/L (98-108); Cholesterol 136 mg/dL (50-200); Globulin, Blood 4.2 g/dL (2.2-4.0); Glomerular Filtration Rate 78 (60-); Glucose, Blood 88 mg/dL (70-99); HDL Cholesterol 66 mg/dL (>39); LDL/HDL RATIO 0.9; Low Density Lipoprotein Chol 57 mg/dL (0-110); Prostate Specific Antigen 0.843 ng/mL (0.000-4.000); Sodium, Blood 139 mmol/L (136-145); Total Protein, Blood 6.9 g/dL (6.4-8.2); Triglycerides 65 mg/dL (30-160); Very Low Density Lipoprot Chol 13 mg/dL (6-32)
== END | disposition home or self-care (01) ==
LOC: LAB 16:19 → LAB SHORT 16:19
PROVIDERS: Nurse Practitioner Family
DX: Z12.5 Encounter for screening for malignant neoplasm of prostate (principal); Z13.6 Encounter for screening for cardiovascular disorders; I10 Essential (primary) hypertension; N25.81 Secondary hyperparathyroidism of renal origin
CPT/HCPCS: 80053; 80061; 83970; 84443; G0103

== ENCOUNTER 2023-09-21 22:07 | Emergency (ER) | payer OTHER ==
[~2023-09-21] VITALS: Ht 170.2 cm; Wt 77.1 kg
[~2023-09-21 22:07] MED LIST changes: -HYDCHL25; -Mupirocin22 GM TOP; -OXYC5; -PREGABALIN75 MG; -SILVER SULFADIA2011; -VANCOCIN HCL125 MG PO
[2023-09-21] MEDS ORDERED: HYDCHL25 ×2 (23:08→23:09)
[2023-09-21] MEDS ORDERED: OXYC5 (23:08)
[2023-09-21] MEDS ORDERED: PREGABALIN75 MG (23:08)
[2023-09-21] MEDS ORDERED: SILVER SULFADIA2011 (23:09)
[2023-09-21 23:14] VITALS: BP 129/62
[2023-09-21] MEDS ORDERED: VANCOCIN HCL125 MG PO (23:46)
[2023-09-21] MEDS ORDERED: Mupirocin22 GM TOP (23:46)
== END 2023-09-22 00:45 | disposition home or self-care (01) ==
LOC: ER 22:07
DX: A04.72 Enterocolitis due to Clostridium difficile, not specified as recurrent (principal); L89.321 Pressure ulcer of left buttock, stage 1; L89.151 Pressure ulcer of sacral region, stage 1
CPT/HCPCS: 99283; A9270; J7030

== ENCOUNTER → 2023-09-28 | Outpatient (CLI) | payer OTHER ==
[~2023-09-28] MED LIST changes: +HYDCHL25; +Mupirocin22 GM TOP; +OXYC5; +PREGABALIN75 MG; +SILVER SULFADIA2011; +VANCOCIN HCL125 MG PO
== END ==
LOC: LAB SHORT 12:39 → LAB 12:39
DX: R30.0 Dysuria (principal); R41.89 Other symptoms and signs involving cognitive functions and awareness
CPT/HCPCS: 87086

== ENCOUNTER → 2023-10-26 | Outpatient (CLI) | payer OTHER ==
[2023-10-26 17:49] LABS: Adenovirus F 40/41 Not Detected (NOT DETECT); Astrovirus Not Detected (NOT DETECT); Campylobacter Sp Not Detected (NOT DETECT); Cryptosporidium Not Detected (NOT DETECT); Cyclospora Cayetanensis Not Detected (NOT DETECT); E. Coli O157 Not Detected (NOT DETECT); Entamoeba Histolytica Not Detected (NOT DETECT); Enteroaggregative E. coli-EAEC Not Detected (NOT DETECT); Enteropathogenic E. coli-EPEC Not Detected (NOT DETECT); Enterotoxigenic E. coli-ETEC Not Detected (NOT DETECT); Giardia Lamblia Not Detected (NOT DETECT); Norovirus GI/GII Not Detected (NOT DETECT); Plesiomonas Shigelloides Not Detected (NOT DETECT); Rotavirus A Not Detected (NOT DETECT); Salmonella Sp Not Detected (NOT DETECT); Sapovirus Not Detected (NOT DETECT); Shiga Toxin-prod E. coli-STEC Not Detected (NOT DETECT); Shigella/Enteroin E. coli-EIEC Not Detected (NOT DETECT); Vibrio Cholerae Not Detected (NOT DETECT); Vibrio Sp Not Detected (NOT DETECT); Yersinia Enterocolitica Not Detected (NOT DETECT)
== END ==
LOC: LAB 15:31 → LAB SHORT 15:31
PROVIDERS: Family Medicine
DX: R19.7 Diarrhea, unspecified (principal)
CPT/HCPCS: 87324; 87507